=== PATIENT | female | born 1955 | race Caucasian/White ===

== ENCOUNTER → 2018-10-09 | Outpatient (CLI) | payer OTHER | END | disposition home or self-care (01) | LOC: RAH 09:42 | PROVIDERS: ATTEND Urology | DX: N20.0 Calculus of kidney (principal); R31.29 Other microscopic hematuria | CPT/HCPCS: 76770 ==

== ENCOUNTER → 2018-10-23 | Outpatient (CLI) | payer OTHER | END | disposition home or self-care (01) | LOC: RAH 14:18 | PROVIDERS: ATTEND Urology | DX: N20.0 Calculus of kidney (principal); N28.1 Cyst of kidney, acquired; K57.90 Diverticulosis of intestine, part unspecified, without perforation or abscess without bleeding; M47.815 Spondylosis without myelopathy or radiculopathy, thoracolumbar region; I70.90 Unspecified atherosclerosis | CPT/HCPCS: 74176 ==

== ENCOUNTER → 2018-12-26 | Outpatient (CLI) | payer OTHER | END | disposition home or self-care (01) | LOC: RAH 13:37 | PROVIDERS: ATTEND Urology | DX: N20.0 Calculus of kidney (principal) | CPT/HCPCS: 74018 ==

== ENCOUNTER → 2019-09-21 | Outpatient (CLI) | payer OTHER | END | disposition home or self-care (01) | LOC: RAH 09:36 | PROVIDERS: ATTEND Internal Medicine Cardiovascular Disease | DX: Z13.6 Encounter for screening for cardiovascular disorders (principal) | CPT/HCPCS: 75571 ==

== ENCOUNTER → 2025-08-30 | Emergency (ER) | payer MEDICARE ==
[~2025-08-30] VITALS: Ht 152.4 cm; Wt 56.7 kg
[~2025-08-30] MED LIST: CARV6.25 PO; ESCI-8 PO; REPA1TAB5 PO
[2025-08-30 10:46] VITALS: BP 137/75; PULSE 83; RESP 16; TEMP 96.9
--- NOTE | 2025-08-30 11:15 | ERN ---
General Chief Complaint: Lower Extremity Pain/Injury Stated Complaint: LOWER EXTREMITY Time Seen by MD: 10:55 Source: patient, family History of Present Illness Initial Comments 69-year-old female came to ED with left lower extremity swelling progressively worsening over the last 3 weeks. Patient has severe back pain from scoliosis and has been receiving steroid injections in the past. Apparently patient has been bed-bound for several weeks due to pain. Patient has significant unilateral swelling of calf, denies shortness of breath, chest pain, denies active history of cancer. Patient's Wells score for DVT is 5. Allergies: Coded Allergies: No Known Drug Allergies (Unverified Allergy, Unknown, 08/30/25) Past Medical History Past Medical History: Diabetes-Type II, Hypertension, UTI, Other Medical History Other: SCOLIOSIS Past Surgical History: ROS Dictation REVIEW OF SYSTEMS CONSTITUTIONAL: Denies fevers, chills, or night sweats. No unintentional weight loss reported. NEUROLOGICAL: Denies headache, motor weakness, sensory deficit, vertigo/spinning sensation CARDIOVASCULAR: Denies any exertional angina, dyspnea on exertion, orthopnea, paroxysmal nocturnal dyspnea, palpitations PULMONARY: Denies any shortness of breath, cough, phlegm/sputum, hemoptysis, pleuritic chest pain. GASTROINTESTINAL: Denies any type of dysphagia to either liquids or solids. D enies nausea, vomiting, pyrosis, early satiety, abdominal pain, diarrhea, constipation GENITOURINARY: Denies frequency, urgency, nocturia, hematuria or incontinence DERMATOLOGIC: Denies rashes, itching, redness. Extremities: Admits to left lower leg swelling ongoing for several weeks with a mild discomfort Physical Exam Physical Exam Dictation VITAL SIGNS: Reviewed. GENERAL APPEARANCE: Alert, oriented x3 HEAD AND FACE: Non-traumatic. EYES: PERRL, pink conjunctivas, eyelid no trauma, anterior chamber clear. EARS: Pinnas intact and no signs of trauma or erythema. Ear canals clear and no discharge. TMs no erythema. NOSE: No discharge, no bleeding. OROPHARYNX: Mouth normal, teeth no caries, tongue pink. Pharynx clear, no erythema. Tonsils no exudates, no abscesses noted. Mucous membrane moist. NECK: Supple, non-tender, no thyromegaly, no masses, no JVD, no bruits. BREAST: Deferred. CHEST: No tenderness, no crepitus, no paradoxical movement, no retractions. LUNGS: Clear, well-ventilated, symmetric, no rales, no wheezing, no rhonchi, no stridor, good breath sounds bilaterally. HEART: Regular rate, regular rhythm, no murmur, no gallops. VASCULAR: No peripheral edema. ABDOMEN: Soft, positive bowel sounds, nondistended, no guarding, nontender, no rebound, no masses no hepatomegaly, no splenomegaly, no Rose's sign, no hernias. RECTAL: Deferred. GENITAL: Deferred. NEUROLOGICAL: Normal speech, gross motor function intact, gross sensory function intact. MUSCULOSKELETAL: Neck nontender, full range of motion, back nontender, full range of motion. EXTREMITIES: Left lower extremity is uniformly swollen greater than 3 cm compared to right, with 2+ pitting edema, with superficial varicosities full range of motion. Pulses are palpable SKIN: Color pink, dry, no turgor, no rash, no lacerations, no abrasions, no contusions. LYMPHATICS: Deferred. Results Laboratory and Microbiology Labs Reviewed?: Yes MDM MDM: Differential diagnosis: DVT, chronic venous insufficiency, lymphedema, Adorno's cyst, PAD Rationale: Tests considered and ordered secondary to shared decision making include: Previous outside records reviewed: Old ER visits. Risk of complication and/or morbidity or mortality of patient management: None Medications-Per medication reconciliation Need for hospitalization: Patient does not meet criteria for hospitalization. Need for emergency major/minor surgery: No There are no social concerns with this patient. Prescription drug management Prescriptions will include symptomatic care Patient's prior external medical records from other ER visits were reviewed by me as indicated. Prior testing and results from previous visits were reviewed. Prior tests were taken into account with medical decision making and resource utilization, independent historian/historians were used to obtain complete medical history. I independently interpreted the test that were performed, results were reviewed by me and considered findings on radiology if ordered. * Medical management and examination interpretation discussions were had by me with other qualified healthcare professionals as indicated for the patient's care. * Was advised by nursing staff the patient eloped ED Course Vital Signs Date Time Temp Pulse Resp B/P (MAP) Pulse Ox O2 Delivery O2 Flow Rate FiO2 08/30/25 10:46 97.0 83 16 137/75 Room Air DX & DISP Disposition: AMA Departure Impression: Primary Impression: Lower extremity pain Condition: Against Medical Advice Additional Instructions: Was advised by nursing staff the patient eloped Referrals: [facility] (PCP) Time of Disposition: 12:21 HEBER HU MD Aug 30, 2025 11:15 SAIMA MURCIA MD Aug 30, 2025 12:22
--- NOTE | 2025-08-30 11:45 | NUR ---
PATIENT NOT IN ER LOBBY WHEN CALLED FOR ULTRASOUND
--- NOTE | 2025-08-30 12:21 | NUR ---
PATIENT NOT IN ER LOBBY WHEN CALLED
--- NOTE | 2025-08-30 12:23 | NUR ---
DR MURCIA AWARE PT LEFT ER WITHOUT NOTICE
--- NOTE | 2025-08-30 12:45 | NUR ---
PATIENT STATES LEFT ER AND JUST NOW RETURNED TO CONTINUE VISIT
== END ==
LOC: EDH 10:45
DX: M79.604 Pain in right leg (principal); M79.605 Pain in left leg; E11.9 Type 2 diabetes mellitus without complications; I10 Essential (primary) hypertension; Z74.01 Bed confinement status; Z87.440 Personal history of urinary (tract) infections
CPT/HCPCS: 82948; 99282